=== PATIENT | female | born 1995 | race American Indian/Alaskan Native ===

== ENCOUNTER 2020-07-10 06:31 | Emergency (ER) | payer OTHER ==
--- NOTE | 2020-07-10 08:14 | XRay Report ---
CHEST 1 VIEW INDICATION: Intermittent chest pain for 3 days. COMPARISON: None FINDINGS: Support devices: None. Heart: Within normal limits. Lungs/Pleura: No acute air space or interstitial disease. Additional findings: None. IMPRESSION: No acute findings. Signer Name: Kiel Crowley Jr, MD Signed: 07/10/2020 8:09 AM Workstation Name: [id number]
[2020-07-10 09:27] LABS: HCG Qualitative,Urine Negative (Negative)
--- NOTE | 2020-07-10 09:28 | Emergency Department Report ---
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 She reports no hemoptysis no hematemesis no hematochezia. Reports no wheezing, no mucus production, no fever, sweats, or presyncope. -: Gradual Radiation: non-radiation Quality: dull Consistency: constant Improves with: none Worsens with: none Associated Symptoms: denies: confusion, chest pain, headaches, malaise, nausea/v omiting, syncope, weakness Treatments Prior to Arrival: none - Related Data Previous Rx's Medication Instructions Recorded Last Taken Type Ketorolac [Toradol] 10 mg PO Q8H PRN #10 tablet 07/10/20 Unknown Rx Omeprazole 40 mg PO DAILY #20 capsule. 07/10/20 Unknown Rx Ondansetron [Zofran Odt] 4 mg PO Q8HR #20 tab.rapdis 07/10/20 Unknown Rx Allergies Allergy/AdvReac Type Severity Reaction Status Date / Time chocolate flavor Allergy Anaphylaxis Verified 07/10/20 07:12 shellfish derived Allergy Anaphylaxis Verified 07/10/20 07:12 ED Review of Systems ROS: Stated complaint: CHEST PAIN, BODY ACHES AND HEADACHE Other details as noted in HPI Comment: All other systems reviewed and negative ED Past Medical Hx - Past Medical History Previous Medical History?: Yes Hx Asthma: Yes - Surgical History Past Surgical History?: No - Social History Smoking Status: Never Smoker - Medications Home Medications: Home Medications Medication Instructions Recorded Confirmed Last Taken Type Ketorolac [Toradol] 10 mg PO Q8H PRN #10 tablet 07/10/20 Unknown Rx Omeprazole 40 mg PO DAILY #20 capsule. 07/10/20 Unknown Rx Ondansetron [Zofran Odt] 4 mg PO Q8HR #20 tab.rapdis 07/10/20 Unknown Rx ED Physical Exam - General Limitations: No Limitations General appearance: alert, in no apparent distress - Head Head exam: Present: atraumatic, normocephalic - Eye Eye exam: Present: normal appearance - ENT ENT exam: Present: mucous membranes moist - Neck Neck exam: Present: normal inspection - Respiratory Respiratory exam: Present: normal lung sounds bilaterally, chest wall tenderness (Tenderness with palpation to the left sternal border with palpation.). Absent: respiratory distress, wheezes, rales, rhonchi, accessory muscle use, decreased breath sounds - Cardiovascular Cardiovascular Exam: Present: regular rate, normal rhythm. Absent: systolic murmur, diastolic murmur, rubs, gallop - GI/Abdominal GI/Abdominal exam: Present: soft, tenderness (Mild epigastric tenderness with palpation. Positive bowel sounds x4 quads no tenderness at Murray's or McBurney's. Abdomen is soft no distention), normal bowel sounds, other. Absent: guarding, rebound - Extremities Exam Extremities exam: Present: normal inspection - Back Exam Back exam: Present: normal inspection - Neurological Exam Neurological exam: Present: alert, oriented X3 - Psychiatric Psychiatric exam: Present: normal affect, normal mood - Skin Skin exam: Present: warm, dry, intact, normal color. Absent: rash ED Course Vital Signs 07/10/20 07/10/20 07:11 10:47 Temperature 97.6 F 98.1 F Pulse Rate 88 80 Respiratory 18 18 Rate Blood Pressure 150/85 Blood Pressure 129/58 [Right] O2 Sat by Pulse 96 98 Oximetry ED Medical Decision Making - Radiology Data Radiology results: report reviewed Chest x-ray read by Dr. Kiel Ellington shows no acute findings time is 07/10/2020 8:09 AM - Medical Decision Making This patient presents with chest pain that is very unlikely angina or acute coronary syndrome. The emergency department evaluation has not identified any cause for suspicion that this chest pain has a cardiac etiology. Based on their history, EKG (which showed no evidence of ischemia or infarction) and imaging, in addition to the patient's physical exam, I see no evidence at this time for a malignant etiology for the patient's chest pain. There is no acute evidence for pulmonary embolus, acute myocardial infarction, pneumothorax, Boerhaeve syndrome, cardiac tamponade, thoracic artery dissection, or any other emergent cardiac, pulmonary or aortic pathology. Given the low pre-test probability for cardiac etiology of chest pain and the absence of any sign of ischemia or infarction, discharge for outpatient follow-up and further evaluation is reasonable. I have explained to the patient that even though a cardiac problem is very unlikely, follow-up and further testing is required to reduce further the already small uncertainty that exists. Other life-threatening diagnoses have been considered. The patient understands the need to return immediately if their symptoms worsen or they develop any new symptoms, and not to engage in any significant exertional activity until follow-up is obtained. Critical care attestation.: If time is entered above; I have spent that time in minutes in the direct care of this critically ill patient, excluding procedure time. ED Disposition Clinical Impression: Chest pain, non-cardiac, Diarrhea Disposition: TO HOME OR SELFCARE Is pt being admited?: No Does the pt Need Aspirin: No Condition: Stable Instructions: Chest Pain (ED), Costochondritis (ED), Gastroenteritis (ED) Prescriptions: Omeprazole 40 mg PO DAILY #20 capsule. Ketorolac [Toradol] 10 mg PO Q8H PRN #10 tablet PRN Reason: Pain Ondansetron [Zofran Odt] 4 mg PO Q8HR #20 tab.rapdis Referrals: PRIMARY CAREMD [Primary Care Provider] - 3-[address] [facility] [Provider Group] - 3-5 Days IRAM COLON MD [Staff Physician] - 3-5 Days
[2020-07-10] MEDS ORDERED: HYDROcodone/ACETAMINOPHEN 5-325 MG TAB PO ONE (10:43)
[2020-07-10 10:47] VITALS: BP 129/58
== END 2020-07-10 10:48 | disposition home or self-care (01) ==
LOC: ED 06:31
DX: R07.89 Other chest pain (principal); R19.7 Diarrhea, unspecified; J45.909 Unspecified asthma, uncomplicated; Z79.899 Other long term (current) drug therapy; Z91.013 Allergy to seafood; Z91.018 Allergy to other foods
CPT/HCPCS: 71045; 81025; 93005

== ENCOUNTER 2020-09-13 11:20 | Emergency (ER) | payer OTHER ==
[2020-09-13 11:40] VITALS: BP 148/86
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
== END 2020-09-13 12:32 | disposition home or self-care (01) ==
LOC: ED 11:20
DX: S66.911A Strain of unspecified muscle, fascia and tendon at wrist and hand level, right hand, initial encounter (principal); J45.909 Unspecified asthma, uncomplicated; Z79.899 Other long term (current) drug therapy; Z91.013 Allergy to seafood; Z88.8 Allergy status to other drugs, medicaments and biological substances; X58.XXXA Exposure to other specified factors, initial encounter; Y93.89 Activity, other specified; Y92.89 Other specified places as the place of occurrence of the external cause; Y99.8 Other external cause status

== ENCOUNTER 2021-03-05 17:22 | Emergency (ER) | payer OTHER ==
[2021-03-05 19:40] VITALS: BP 129/67
[2021-03-05 19:59] LABS: Basophils # (Auto) 0.1 K/mm3 (0.0-0.1); Eosinophils # (Auto) 0.1 K/mm3 (0.0-0.4); Hemoglobin 11.2 gm/dl (10.1-14.3); Lymphocytes # (Auto) 2.3 K/mm3 (1.2-5.4); Lymphocytes % (Auto) 37.3 % (13.4-35.0); Mean Corpuscular HGB Conc 33 % (30-34); Mean Corpuscular Volume 74 fl (79-97); Monocytes # (Auto) 0.7 K/mm3 (0.0-0.8); Monocytes % (Auto) 10.9 % (0.0-7.3); Platelet Count 313 K/mm3 (140-440); Red Blood Count 4.61 M/mm3 (3.65-5.03); Red Cell Distribution Width 17.9 % (13.2-15.2)
[2021-03-05 20:11] LABS: Blood Urea Nitrogen 10 mg/dL (7-17); Calcium 8.8 mg/dL (8.4-10.2); Hemolysis Index 7
[2021-03-05 20:14] LABS: BUN/Creatinine Ratio 17
--- NOTE | 2021-03-05 20:30 | XRay Report ---
CHEST 2 VIEWS INDICATION / CLINICAL INFORMATION: chest pain. COMPARISON: 07/10/2020 FINDINGS: SUPPORT DEVICES: None. HEART / MEDIASTINUM: No significant abnormality. LUNGS / PLEURA: No significant pulmonary or pleural abnormality. No pneumothorax. ADDITIONAL FINDINGS: No significant additional findings. IMPRESSION: No significant abnormality or interval change from 07/10/2020 Signer Name: Yovany Martinez MD FACR Signed: 03/05/2021 8:26 PM Workstation Name: [id number]
--- NOTE | 2021-03-05 21:05 | Emergency Department Report ---
ED General Adult HPI - General Chief complaint: Chest Pain Stated complaint: CHEST PAINS /LT SIDE NUMBNESS Time Seen by Provider: 03/05/21 20:20 Source: patient Mode of arrival: Ambulatory Limitations: No Limitations - History of Present Illness Initial comments: Patient is a 25-year-old female presents emergency room with complaints of substernal chest pain that began 2 weeks ago. She states the pain is worse with movement and palpation. Patient states that she is also been having left elbow pain and tingling down her left arm for 2 weeks. Patient states that she frequently sleeps on this arm and she wakes up with the pain. She denies any complete numbness or weakness. She denies any radiation of her chest pain. She denies any fever, cough, nausea, vomiting, shortness of breath, pleuritic chest pain, leg swelling. She denies any recent travel, recent surgery, recent immobilization. Past medical history of asthma. No allergies medications. She denies tobacco use. - Related Data Previous Rx's Medication Instructions Recorded Last Taken Type Ketorolac [Toradol] 10 mg PO Q8H PRN #10 tablet 07/10/20 Unknown Rx Omeprazole 40 mg PO DAILY #20 capsule. 07/10/20 Unknown Rx Ondansetron [Zofran Odt] 4 mg PO Q8HR #20 tab.rapdis 07/10/20 Unknown Rx Naproxen 500 mg PO Q12H PRN #12 tablet 09/13/20 Unknown Rx Menthol/Camphor [Redkey Bristol 1 applicatio TP BID #18 oint...g. 03/05/21 Unknown Rx Ointment] Naproxen [EC-Naprosyn] 375 mg PO BID PRN #20 tablet. 03/05/21 Unknown Rx methOCARBAMOL [Robaxin TAB] 500 mg PO BID PRN #14 tab 03/05/21 Unknown Rx Allergies Allergy/AdvReac Type Severity Reaction Status Date / Time chocolate flavor Allergy Anaphylaxis Verified 09/13/20 11:37 shellfish derived Allergy Anaphylaxis Verified 09/13/20 11:37 ED Review of Systems ROS: Stated complaint: CHEST PAINS /LT SIDE NUMBNESS Other details as noted in HPI Comment: All other systems reviewed and negative ED Past Medical Hx - Past Medical History Previous Medical History?: Yes Hx Asthma: Yes - Social History Smoking Status: Never Smoker - Medications Home Medications: Home Medications Medication Instructions Recorded Confirmed Last Taken Type Ketorolac [Toradol] 10 mg PO Q8H PRN #10 tablet 07/10/20 Unknown Rx Omeprazole 40 mg PO DAILY #20 capsule. 07/10/20 Unknown Rx Ondansetron [Zofran Odt] 4 mg PO Q8HR #20 tab.rapdis 07/10/20 Unknown Rx Naproxen 500 mg PO Q12H PRN #12 tablet 09/13/20 Unknown Rx Menthol/Camphor [Redkey Bristol 1 applicatio TP BID #18 oint...g. 03/05/21 Unknown Rx Ointment] Naproxen [EC-Naprosyn] 375 mg PO BID PRN #20 tablet. 03/05/21 Unknown Rx methOCARBAMOL [Robaxin TAB] 500 mg PO BID PRN #14 tab 03/05/21 Unknown Rx ED Physical Exam - General Limitations: No Limitations General appearance: alert, in no apparent distress - Head Head exam: Present: atraumatic, normocephalic - Eye Eye exam: Present: normal appearance - ENT ENT exam: Present: mucous membranes moist - Respiratory Respiratory exam: Present: normal lung sounds bilaterally, chest wall tenderness (reproducible anterior sternal ttp, no crepitus, no deformity, no skin changes). Absent: respiratory distress, wheezes, rales, rhonchi, stridor, accessory muscle use, decreased breath sounds, prolonged expiratory - Cardiovascular Cardiovascular Exam: Present: regular rate, normal rhythm, normal heart sounds. Absent: systolic murmur, diastolic murmur, rubs, gallop - Extremities Exam Extremities exam: Present: normal inspection, full ROM, normal capillary refill, other (FROM of the BUE, no bony ttp of the BUE, no deformity, no edema, no skin changes, neurovascularly intact). Absent: tenderness, pedal edema, joint swelling, calf tenderness - Neurological Exam Neurological exam: Present: alert, oriented X3, CN II-XII intact, normal gait. Absent: motor sensory deficit - Psychiatric Psychiatric exam: Present: normal affect, normal mood - Skin Skin exam: Present: warm, dry, intact ED Course Vital Signs 03/05/21 03/05/21 17:33 21:30 Temperature 98.7 F Pulse Rate 83 92 H Respiratory 18 17 Rate Blood Pressure 129/67 O2 Sat by Pulse 98 100 Oximetry ED Medical Decision Making - Lab Data Result diagrams: 03/05/21 19:38 03/05/21 19:38 - EKG Data EKG shows normal: sinus rhythm, axis, intervals, QRS complexes, ST-T waves Rate: normal - Radiology Data Radiology results: report reviewed Ordering Physician: FLORENCIA EMERSON Date of Service: 03/05/21 Procedure(s): XR chest routine 2V Accession Number(s): [id number] cc: FLORENCIA EMERSON Fluoro Time In Minutes: CHEST 2 VIEWS INDICATION / CLINICAL INFORMATION: chest pain. COMPARISON: 07/10/2020 FINDINGS: SUPPORT DEVICES: None. HEART / MEDIASTINUM: No significant abnormality. LUNGS / PLEURA: No significant pulmonary or pleural abnormality. No pneumothorax. ADDITIONAL FINDINGS: No significant additional findings. IMPRESSION: No significant abnormality or interval change from 07/10/2020 Signer Name: Yovany Martinez MD FACR Signed: 03/05/2021 8:26 PM Workstation Name: [id number] Transcribed By: MS Dictated By: Yovany Martinez MD Electronically Authenticated By: Yovany Martinez MD Signed Date/Time: 03/05/212025 DD/ 24 TD/TT: - Medical Decision Making Patient is a 25-year-old female presents emergency room with complaints of substernal chest pain that began 2 weeks ago. She states the pain is worse with movement and palpation. Patient states that she is also been having left elbow pain and tingling down her left arm for 2 weeks. Patient states that she frequently sleeps on this arm and she wakes up with the pain. She denies any complete numbness or weakness. She denies any radiation of her chest pain. She denies any fever, cough, nausea, vomiting, shortness of breath, pleuritic chest pain, leg swelling. She denies any recent travel, recent surgery, recent immo bilization. Past medical history of asthma. No allergies medications. She denies tobacco use. vitals are stable. on exam: reproducible anterior sternal ttp, no crepitus, no deformity, no skin changes, FROM of the BUE, no bony ttp of the BUE, no deformity, no edema, no skin changes, neurovascularly intact. Orders placed prior to my examination. EKG is within normal limits. Chest x- ray with no acute process. Labs are normal, troponin is negative. Heart score is 1, low risk for cardiac event, do not suspect ACS. Chest pain appears most consistent with costochondritis. Left arm pain could be due to patient sleeping on this arm, she has no signs of septic joint, no clinical signs of DVT, sensation is intact, no skin changes, no joint deformities. Patient is PERC criteria negative for PE. Patient given prescription for medications. Advised patient Please take medication as prescribed as needed. May use ice for 15 minutes at a time, heating pad 15 minutes at a time. Avoid sleeping on your arm. do not use tiger balm while using heat or ice. Follow-up with primary care doctor. Follow-up with orthopedic doctor. Return to emergency room for new or worse symptoms. Critical care attestation.: If time is entered above; I have spent that time in minutes in the direct care of this critically ill patient, excluding procedure time. ED Disposition Clinical Impression: Chest pain, Left arm pain Disposition: TO HOME OR SELFCARE Is pt being admited?: No Does the pt Need Aspirin: No Condition: Stable Instructions: Nonspecific Chest Pain, Adult, Costochondritis Additional Instructions: Please take medication as prescribed as needed. May use ice for 15 minutes at a time, heating pad 15 minutes at a time. Avoid sleeping on your arm. do not use tiger balm while using heat or ice. Follow-up with primary care doctor. Follow- up with orthopedic doctor. Return to emergency room for new or worse symptoms. Prescriptions: Naproxen [EC-Naprosyn] 375 mg PO BID PRN #20 tablet.dr PRN Reason: pain methOCARBAMOL [Robaxin TAB] 500 mg PO BID PRN #14 tab PRN Reason: muscle spasm/pain Menthol/Camphor [Redkey Bristol Ointment] 1 applicatio TP BID #18 oint...g. Referrals: IRAM COLON MD [Staff Physician] - 3-5 Days [facility] [Provider Group] - 3-5 Days VAL TERRY MD [Staff Physician] - 3-5 Days [facility] [Provider Group] - 3-5 Days Forms: Work/School Release Form(ED) Time of Disposition: 21:04 Print Language: LATVIAN HEART Score - HEART Score History: Slightly suspicious EKG: Normal Age: < 45 Risk factors: 1-2 risk factors Troponin: Troponin T < 0.010 ng/mL (0.00-0.029) 03/05/21 19:38 Troponin: < normal limit HEART Score: 1
--- NOTE | 2021-03-06 09:58 | Electrocardiograph Report ---
[facility] Test Date: 2021-03-05 Test Time: 17:37:26 Pat Name: IVANA DELEON Department: Room: Gender: F Recruiting Consultant: EDER YOUNGB: 1995 Requested By: FLORENCIA EMERSON Order Number: [id number] Reading MD: Jonathan Hogan Measurements Intervals [place] Rate: 86 P: 48 [place]: 162 QRS: 34 QRSD: 88 T: 18 QT: 371 QTc: 443 Interpretive Statements Sinus rhythm No previous ECG available for comparison Electronically Signed On 03-06-2021 9:57:30 EDT by Jonathan Hgoan
== END 2021-03-05 21:30 | disposition home or self-care (01) ==
LOC: ED 17:22
DX: R07.89 Other chest pain (principal); M79.602 Pain in left arm; R00.2 Palpitations; J45.909 Unspecified asthma, uncomplicated; Z91.013 Allergy to seafood; Z91.018 Allergy to other foods; Z79.899 Other long term (current) drug therapy
CPT/HCPCS: 36415; 71046; 80048; 84484; 85025; 93005; 99283